=== PATIENT | male | born 1980 | race Two or more races ===

== ENCOUNTER → 2017-06-23 | Emergency (ER) | payer OTHER ==
[~2017-06-23] VITALS: Ht 175.3 cm; Wt 66.2 kg
[~2017-06-23] MED LIST: ADV ALLERGY CO1 EACH; AMITRIPTYLINE; LIBRAX; MEDROL4 MG PO; [UNRECOGNIZED DRUG - OTHER]
== END | disposition home or self-care (01) ==
LOC: ER 04:31
DX: K64.8 Other hemorrhoids (principal)

== ENCOUNTER 2017-07-09 09:33 | Inpatient (IN) | payer OTHER ==
[2017-07-11] MEDS ORDERED: AMOX1TAB5 PO (09:42)
[2017-07-11] MEDS ORDERED: OMEPRAZOLE20 MG PO (09:42)
[2017-07-11] MEDS ORDERED: ULTRACET PO (09:42)
[2017-07-11] MEDS ORDERED: INTESTINEX680 M1 PO (09:42)
== END 2017-07-11 10:30 | disposition home or self-care (01) | DRG 394 ==
LOC: CIR.AMB 09:33 → SURH 17:21
PROVIDERS: Surgery
PROC: 0DBP7ZX Excision of Rectum, Via Natural or Artificial Opening, Diagnostic (ICD-10-PCS; 2017-07-09)
PROC: 3E0T3BZ Introduction of Anesthetic Agent into Peripheral Nerves and Plexi, Percutaneous Approach (ICD-10-PCS; 2017-07-09)
PROC: 0DBQ7ZX Excision of Anus, Via Natural or Artificial Opening, Diagnostic (ICD-10-PCS; 2017-07-09)
PROC: 0D9P7ZX Drainage of Rectum, Via Natural or Artificial Opening, Diagnostic (ICD-10-PCS; principal; 2017-07-09 13:00)
DX: K61.2 Anorectal abscess (principal); K62.5 Hemorrhage of anus and rectum; D61.818 Other pancytopenia; K62.89 Other specified diseases of anus and rectum; Z21 Asymptomatic human immunodeficiency virus [HIV] infection status; A63.0 Anogenital (venereal) warts

== ENCOUNTER 2017-08-14 07:41 | Emergency (ER) | payer OTHER ==
[~2017-08-14] VITALS: Ht 177.8 cm; Wt 67.1 kg
[~2017-08-14 07:41] MED LIST changes: +AMOX1TAB5 PO; +INTESTINEX680 M1 PO; +OMEPRAZOLE20 MG PO; +ULTRACET PO
[2017-08-14] MEDS ORDERED: LYRICA50 MG PO (07:58)
== END 2017-08-14 14:03 | disposition home or self-care (01) ==
LOC: ER 07:41
DX: B34.9 Viral infection, unspecified (principal)

== ENCOUNTER 2017-08-14 20:58 | Inpatient (IN) | payer OTHER ==
[~2017-08-14] VITALS: Ht 177.8 cm; Wt 67.1 kg
[~2017-08-14 20:58] MED LIST changes: +LYRICA50 MG PO
== END 2017-08-16 15:13 | disposition expired | DRG 974 ==
LOC: ER 20:58 → SURH 08-15 09:16
PROC: 3E0F7GC Introduction of Other Therapeutic Substance into Respiratory Tract, Via Natural or Artificial Opening (ICD-10-PCS; 2017-08-15)
PROC: 4A033R1 Measurement of Arterial Saturation, Peripheral, Percutaneous Approach (ICD-10-PCS; 2017-08-15)
PROC: BW24ZZZ Computerized Tomography (CT Scan) of Chest and Abdomen (ICD-10-PCS; 2017-08-15)
PROC: BW41ZZZ Ultrasonography of Abdomen and Pelvis (ICD-10-PCS; 2017-08-15)
PROC: 30233N1 Transfusion of Nonautologous Red Blood Cells into Peripheral Vein, Percutaneous Approach (ICD-10-PCS; 2017-08-15)
PROC: 8E0ZXY6 Isolation (ICD-10-PCS; 2017-08-15)
PROC: 5A1935Z Respiratory Ventilation, Less than 24 Consecutive Hours (ICD-10-PCS; principal; 2017-08-16)
PROC: 0BH17EZ Insertion of Endotracheal Airway into Trachea, Via Natural or Artificial Opening (ICD-10-PCS; 2017-08-16)
PROC: 06HM33Z Insertion of Infusion Device into Right Femoral Vein, Percutaneous Approach (ICD-10-PCS; 2017-08-16)
PROC: B246ZZZ Ultrasonography of Right and Left Heart (ICD-10-PCS; 2017-08-16)
DX: B20 Human immunodeficiency virus [HIV] disease (principal); R65.21 Severe sepsis with septic shock; C46.1 Kaposi's sarcoma of soft tissue; J18.9 Pneumonia, unspecified organism; A41.51 Sepsis due to Escherichia coli [E. coli]; N17.8 Other acute kidney failure; E87.2 Acidosis; E86.0 Dehydration; M79.7 Fibromyalgia; Z16.12 Extended spectrum beta lactamase (ESBL) resistance